=== PATIENT | female | born 1945 | race Caucasian/White ===

== ENCOUNTER 2016-10-01 09:04 | Emergency (ER) | payer MEDICARE ==
[2016-10-01 10:19] LABS: BASOPHIL 0.2 % (0-2); EOSINOPHIL 0 % (0-7); HCT 29.7 % (37.0-47.0); HGB 9.9 g/dl (12.5-16.0); LYMPHOCYTE 6.9 % (15-48); MCH 27.5 pg (25.0-31.0); MCHC 33.3 g/dL (32.0-36.0); MCV 82.5 fL (78.0-100.0); MONOCYTE 4.8 % (0-12); NEUTROPHIL 88.1 % (41-80); PLT 185 K/uL (150-400); RDW 16.6 % (11.5-14.0); WBC 6.5 K/uL (4.0-10.5)
[2016-10-01 10:43] LABS: ALBUMIN 2.9 g/dL (3.4-4.8); BILIRUBIN - TOTAL 0.7 mg/dL (0.1-1.0); CREATININE 0.7 mg/dL (0.5-1.0); GLOBULIN (CALCULATION) 2.8 g/dL (2.2-4.2); POTASSIUM 3.9 mmol/L (3.5-5.1); TOTAL PROTEIN 5.7 g/dL (6.4-8.3)
[2016-10-01 10:48] LABS: LACTIC ACID 0.9 mmol/L (0.5-2.2)
[2016-10-01 11:25] LABS: BILIRUBIN NEGATIVE (NEGATIVE); BLOOD 3+ Ery/uL (NEGATIVE); CLARITY CLEAR (CLEAR); COLOR YELLOW (YELLOW); GLUCOSE (U) NORMAL (NORMAL); KETONE (U) NEGATIVE (NEGATIVE); LEUKOCYTES TRACE Leu/uL (NEGATIVE); NITRITE NEGATIVE (NEGATIVE); PROTEIN NEGATIVE (NEGATIVE); SPECIFIC GRAVITY <=1.005 (1.001-1.030); UROBILINOGEN 0.2 mg/dL (0.2-1.0); pH 6.5 (5.0-9.0)
[2016-10-01 11:27] LABS: BACTERIA TRACE; SQUAMOUS EPITHELIAL CELLS RARE
[2016-10-01 12:12] LABS: FT4 (FREE T4) 1.39 ng/dL (0.93-1.70); TSH (THYROID STIM HORMONE) 0.753 uIU/mL (0.270-4.200)
== END 2016-10-01 13:15 | disposition home or self-care (01) ==
LOC: FER 09:04
PROVIDERS: Internal Medicine
DX: S22.41XA Multiple fractures of ribs, right side, initial encounter for closed fracture (principal); R42 Dizziness and giddiness; R63.4 Abnormal weight loss; S09.90XA Unspecified injury of head, initial encounter; W06.XXXA Fall from bed, initial encounter; W55.12XA Struck by horse, initial encounter
CPT/HCPCS: 36415; 70450; 71020; 71100; 80053; 81001; 82550; 83605; 84439; 84443; 85025; 85651; 86140; 87040; 93005